=== PATIENT | male | born 1955 | race Caucasian/White ===

== ENCOUNTER → 2020-06-14 12:58 | Outpatient (CLI) | payer MEDICARE, SELFPAY ==
--- NOTE | ~2020-06-14 | MR_ITS ---
EXAMINATION: MR cervical spine wo/w con DATE: 06/14/2020 14:00 INDICATION: Right-sided neck pain. TECHNIQUE: Magnetic resonance imaging (MRI) of the cervical spine was performed without and with 14 m L MultiHance intravenous contrast. Sequences included sagittal and axial T2-weighted FSE, sagittal ST IR FSE, and sagittal and axial T1-weighted FSE. Postcontrast sequences included sagittal and axial T1 -weighted FS FSE. COMPARISON: Cervical spine MRI 07/04/2005 FINDINGS: There is 4 degrees levocurvature of cervical spine. Vertebral body heights are normal. Ther e is mildly decreased disc height at C4-C5 and C5-C6 and severely decreased disc height at C6-C7. The spinal cord signal intensity is normal. The following disc levels are specifically discussed: C2-C3: There is a central protrusion. There is mild bilateral uncovertebral joint osteoarthritis. The re is mild right and severe left facet joint osteoarthritis. There is mild left neural foraminal sten osis. There is no central canal stenosis. C3-C4: There is a central extrusion. There is mild bilateral uncovertebral joint osteoarthritis. Ther e is mild right and severe left facet joint osteoarthritis. There is mild bilateral neural foraminal stenosis. There is no central canal stenosis. C4-C5: The disc is bulging. There is severe left uncovertebral joint osteoarthritis. There is severe right and moderate left facet joint osteoarthritis. There is mild right and moderate left neural fora ricardo stenosis. There is mild central canal stenosis. C5-C6: The disc is bulging. There is moderate bilateral uncovertebral joint osteoarthritis. There is severe right and moderate left facet joint osteoarthritis. There is mild bilateral neural foraminal s tenosis. There is mild central canal stenosis. C6-C7: The disc is bulging. There is severe right and moderate left uncovertebral joint osteoarthriti s. There is no facet joint osteoarthritis. There is mild bilateral neural foraminal stenosis. There i s mild central canal stenosis. C7-T1: The disc is bulging. There is severe right and mild left uncovertebral joint osteoarthritis. T here is moderate left facet joint osteoarthritis. There is mild bilateral neural foraminal stenosis. There is no central canal stenosis. IMPRESSION: 1. Severe cervical spondylosis, worsened from 07/04/2005. Reviewed, dictated and finalized at location B.
[2020-06-14 13:31] LABS: Estimated Glomerular Filt Rate > 60
== END ==
PROVIDERS: PCP Family Medicine; Visit Provider Pain Medicine Pain Medicine
DX: M54.2 Cervicalgia (principal); M47.22 Other spondylosis with radiculopathy, cervical region
CPT/HCPCS: 36415; 72156; A9577

== ENCOUNTER → 2021-04-14 08:10 | Outpatient (CLI) | payer MEDICARE, SELFPAY ==
--- NOTE | ~2021-04-14 | CT_ITS ---
EXAMINATION: CT soft tissue neck w con EXAM DATE: 04/14/2021 08:43 INDICATION: R59.0 - Localized enlarged lymph nodes. TECHNIQUE: Spiral CT of the neck was performed following intravenous injection of 75 mL Omnipaque 350 . Axial, coronal and sagittal images were reviewed. The dose-length product (DLP) for this examinat ion was 430.95 mGy-cm. The exposure was tailored according to patient size (auto mA exposure control ), and iterative reconstruction (ASIR) was used as additional dose reduction technique. There is no prior study for comparison. FINDINGS: The thyroid gland is unremarkable. The submandibular and parotid glands are symmetric. There is no cervical lymphadenopathy. There are no masses identified. The superior mediastinum is unremarkable. The airway is unremarkable. Parapharyngeal and pre-glottic fat planes are preserve d. The opacified vasculature is patent. The orbits are unremarkable. Visualized sinuses and mas toid air cells are well aerated. Lung apices are clear. there is moderate cervical spondylosis. IMPRESSION: No cervical mass or lymphadenopathy. Reviewed, dictated and finalized at location A.
[2021-04-14 08:31] LABS: Estimated Glomerular Filt Rate > 60
== END ==
PROVIDERS: Visit Provider Family Medicine
DX: R59.0 Localized enlarged lymph nodes (principal)
CPT/HCPCS: 70491; Q9967

== ENCOUNTER 2021-11-21 07:26 | Outpatient (RCR) | payer MEDICARE, SELFPAY ==
[2021-11-21 07:32] VITALS: BP 148/90; PULSE 68; RESP 18; TEMP 35.9; O2SAT 100
[2021-11-21] MEDS: ACETAMINOPHEN 325 MG TABLET 650 MG PO (07:35)
[2021-11-21] MEDS: diphenhydrAMINE HCl CAP 25 MG CAPSULE PO (07:35)
[2021-11-21] MEDS: FAMOTIDINE 20 MG TABLET PO (07:35)
[2021-11-21 08:57] VITALS: BP 138/82; PULSE 72; O2SAT 98
== END 2021-11-21 16:00 ==
LOC: AMCINF 07:26
PROVIDERS: PCP Family Medicine; Visit Provider Internal Medicine Hematology & Oncology
DX: U07.1 COVID-19 (principal)
CPT/HCPCS: A9270; M0243; Q0244

== ENCOUNTER 2022-05-18 13:17 | Outpatient (CLI) | payer MEDICARE, SELFPAY ==
--- NOTE | ~2022-05-18 | US_ITS ---
US scrotum doppler INDICATION: History of varicocele TECHNIQUE: Testicular sonogram utilizing grayscale and color Doppler FINDINGS: The testes are normal in size and appearance. No focal lesions are seen. The right testes measures 4 x 1.9 x 3.4 cm centimeters, and the left testis measures 4.5 x 2.3 x 3 cm cm. There is nor mal vascular flow to both testes. There is right epididymal cyst measuring 6 mm. There is a left varicocele. IMPRESSION: 1. Left varicocele. 2: Right epididymal cyst measuring 6 mm. Reviewed, dictated and finalized at location A.
== END 2022-05-18 13:18 | disposition home or self-care (01) ==
PROVIDERS: PCP Family Medicine; Visit Provider Family Medicine
DX: N50.89 Other specified disorders of the male genital organs (principal); L72.0 Epidermal cyst; I86.1 Scrotal varices
CPT/HCPCS: 76870; 93976

== ENCOUNTER 2022-07-06 07:22 | Outpatient (CLI) | payer MEDICARE, SELFPAY ==
[2022-07-06 07:46] LABS: Anion Gap 2 mmol/L (8-16); Blood Urea Nitrogen 17 mg/dL (9-20); Calcium 8.6 mg/dL (8.4-10.2); Carbon Dioxide 31 mmol/L (22-30); Chloride 98 mmol/L (98-107); Estimated Glomerular Filt Rate > 60; Glucose 102 mg/dL (65-110); Potassium 4.6 mmol/L (3.4-5.0); Sodium 131 mmol/L (137-145)
== END 2022-07-06 07:23 | disposition home or self-care (01) ==
PROVIDERS: PCP Family Medicine; Visit Provider Family Medicine
DX: E87.5 Hyperkalemia (principal)
CPT/HCPCS: 36415; 80048

== ENCOUNTER 2025-01-19 13:03 | Outpatient (CLI) | payer MEDICARE, SELFPAY ==
--- NOTE | ~2025-01-19 | CT_ITS ---
Clinical Indication: Aortic disorder CT Scan of the Chest with Contrast: Technique: Contiguous sections were acquired throughout the chest after intravenous administration of 100 cc of Omnipaque 350. Dose reduction technique was used on this scan by utilizing automated expos ure control and iterative reconstruction technique. The dose-length product (DLP) was 504.04 mGy-cm. Findings: There is no evidence of any significant mediastinal, hilar or axillary lymphadenopathy. There is no f illing defect in the pulmonary arterial tree to suggest pulmonary embolus. Aorta measures 4.5 cm in d iameter at the sinus of Valsalva on coronal images. There is no evidence of pleural or pericardial effusion. The lungs are clear, aside from discoid bibasilar atelectasis or scarring. Images through the upper abdomen reveal no abnormalities. There are innumerable probable small scattered lytic lesions throughout the visualized skeleton, susp icious for myeloma. There is mild compression fracture of T9. Possible mild compression fracture of T 7 and T5. Impression: Aorta measures 4.5 cm in diameter at the sinus of Valsalva on coronal images. Findings highly suspicious for multiple myeloma with associated mild compression fractures of T5, T7, and T9. Reviewed, dictated and finalized at [facility]. Impression: Aorta measures 4.5 cm in diameter at the sinus of Valsalva on coronal images. Findings highly suspicious for multiple myeloma with associated mild compressio n fractures of T5, T7, and T9.
[2025-01-19 13:22] LABS: Estimated Glomerular Filt Rate > 60
== END 2025-01-19 13:04 | disposition home or self-care (01) ==
LOC: MICIMG 13:04
PROVIDERS: PCP Nurse Practitioner; Visit Provider Internal Medicine Cardiovascular Disease
DX: I77.9 Disorder of arteries and arterioles, unspecified (principal); S22.050A Wedge compression fracture of T5-T6 vertebra, initial encounter for closed fracture; S22.060A Wedge compression fracture of T7-T8 vertebra, initial encounter for closed fracture; S22.070A Wedge compression fracture of T9-T10 vertebra, initial encounter for closed fracture; X58.XXXA Exposure to other specified factors, initial encounter
CPT/HCPCS: 71275; Q9967